=== PATIENT | male | born 1980 | race Caucasian/White ===

== ENCOUNTER 2017-03-19 22:00 | Inpatient (IN) | payer OTHER ==
[~2017-03-19] VITALS: Ht 185.4 cm; Wt 97.5 kg
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
--- NOTE | ~2017-03-19 | CO ---
Unit #: [id number] #: [id number] Patient: STEPHANY ANTONY [id number] [place] [address] [id number] I MR#: [id number] NAME: STEPHANY ANTONY ROOM: [facility] Age: 36 Sex: M Admission Date: 03/20/2017 : 1980 Attending Physician: Tristan Perkins M.D. Primary Care Physician: Reddy Hernandez M.D. Consultation Date: 03/20/2017 CONSULTATION REPORT HISTORY OF PRESENT ILLNESS Stephany reports that he has had a history of hemorrhoids, however, he was not any taking medications at home. He is not having bleeding, but does have pain with bowel movements for the past 2 weeks. He also reports that prior to admission, his ex-girlfriend called him to notify them that she tested positive for sexually transmitted infection. He is unsure which one. He believes it could have been trichomonas. He has not had any groin pain. No penile discharge. No other complaints. PHYSICAL EXAMINATION CARDIAC: Regular rate and rhythm. No murmurs, gallops, or rubs. RESPIRATORY: Clear to auscultation bilaterally. AND RECTAL: Deferred. ASSESSMENT AND PLAN 1. Possible exposure to sexually transmitted infection. We will obtain an STI panel. Please notify, if positive. 2. Hemorrhoids. We will begin preparation H ointment 4 times daily. Please notify, if symptoms are unresolved. The patient was instructed to follow up with primary care provider. Dictated by... Adelina Raines/иван TD: 03/21/2017 05:34 JOB #: [id number] CONSULTATION REPORT Page 1 of 1 X JIMMY POTTER APRN X CONSULTATION REPORT
--- NOTE | ~2017-03-19 | HP ---
Unit #: [id number] #: [id number] Patient: STEPHANY ANTONY [id number] [place] [address] [id number] I MR#: [id number] NAME: STEPHANY ANTONY ROOM: [facility] Age: 36 Sex: M Admission Date: 03/20/2017 : 1980 Attending Physician: Tristan Perkins M.D. Admitting Physician: Tristan Perkins M.D. Primary Care Physician: Reddy Hernandez M.D. HISTORY AND PHYSICAL HISTORY OF PRESENT ILLNESS Stephany is a 36-year-old male admitted on 03/10/2017 to [facility] for suicidal ideation PAST MEDICAL HISTORY GERD and hyperlipidemia. PAST SURGICAL HISTORY Bilateral heel fracture with surgical repair in 2003. SOCIAL HISTORY Smokes one to two packs of cigarettes daily. No alcohol or illegal drug use. He is currently single and living with roommates. FAMILY HISTORY Noncontributory. REVIEW OF SYSTEMS CONSTITUTIONAL: No fever or chills. HEENT: Denies any sore throat, ear pain or runny nose. CARDIOVASCULAR: Denies chest pain, irregular heart rhythm or palpitations. CHEST: Denies shortness of breath or cough. No hemoptysis. GASTROINTESTINAL: Denies nausea, vomiting, diarrhea or chronic constipation. ENDOCRINE: Denies history of increased thirst or urination. No recent significant weight loss or gain. GENITOURINARY: Denies dysuria, frequency, or hematuria. SKIN: Denies any rashes. HEMATOLOGIC: Denies history of increased bleeding or bruising. MUSCULOSKELETAL: Denies any hot, swollen joints. No generalized muscle pain. NEUROLOGIC: Denies problems with vision or speech. No frequent, severe headaches. No numbness, tingling or weakness in any extremities. Denies loss of bladder or bowel control. CURRENT MEDICATIONS 1. Seroquel 2. Omeprazole 3. Trileptal 4. Lipitor Unit #: [id number] #: [id number] Patient: STEPHANY ANTONY ALLERGIES 1. Haldol 2. Vistaril 3. Pimozide PHYSICAL EXAMINATION GENERAL: Alert, oriented, in no acute distress. VITAL SIGNS: Blood pressure 106/83, heart rate 86, respirations 16, temperature 98.6. HEIGHT: 6 foot 1 inches. WEIGHT: 223 pounds. SKIN: Warm and dry without rash or lesion. HEENT: Normocephalic. TMs not viewed. Oral and nasal passages clear. Conjunctivae clear. PERRLA. EOMs intact. NECK: Supple without lymphadenopathy or thyromegaly. HEART: Regular rate and rhythm without murmur. LUNGS: Clear. ABDOMEN: Soft, nontender, without masses or hepatosplenomegaly. : Not done. EXTREMITIES: No evidence of cyanosis, clubbing or edema. Moves all without focal deficit. NEUROLOGICAL: Grossly within normal limits. Cranial Nerves: II: Visual mcgarry are intact. III, IV AND : Extraocular movements are intact. Pupils are equal, round and reactive to light. V: Facial sensation is grossly normal. VII: Facial movements and expression are normal. VIII: Auditory acuity grossly intact. IX, X: Uvula is midline. Phonation is normal. XI: Patient shrugs shoulders and turns head normally. XII: Tongue protrudes in the midline. Sensory and Motor Function: Sensory and motor sensation is grossly normal. Motor: moves all extremities well. Coordination: Gait is normal. Deep Tendon Reflexes: Intact. IMPRESSION 1. Psychiatric admission. 2. GERD. 3. Hyperlipidemia. RECOMMENDATIONS Psychiatric, per psychiatrist. MEDICAL: I see no contraindications to participating in facility's activities. MEDICAL PROGNOSIS Good. MEDICAL CONDITION Stable. Dictated by... Marie RainesPGosiaRDavid Unit #: [id number] #: [id number] Patient: STEPHANY ANTONY DIPAK/lizzy TD: 03/20/2017 23:42 JOB #: [id number] HISTORY AND PHYSICAL Page 1 of 1 X JIMMY POTTER APRN HISTORY AND PHYSICAL
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
[~2017-03-19 22:00] MED LIST: CIPRO PO; EFFEXOR75 MG PO; FLOMAX0.4 M1 DOB; FLOMAX0.4 M1 PO; KLONOPIN1 MG PO; LORTAB 5/500 TA1 TA2 PO; NORCO 5/325 TAB1 TAB PO; PHENERGAN25 M1 PO; PRILOSEC40 MG PO; PYRIDIUM PO; SEROQUEL300 MG PO; TRILEPTAL PO; TRILEPTAL600 MG PO; VOLTAREN PO; ZYPREXA15 MG PO
[2017-03-20 09:35] LABS: BASOPHIL# 0.1 X10e3 (0-0.3); BASOPHIL% 0.7 % (0-2.5); EOSINOPHIL# 0.1 X10e3 (0-0.7); EOSINOPHIL% 0.8 % (0.0-7.0); HEMATOCRIT 48.3 % (38.0-50.0); LYMPHOCYTE# 1.8 X10e3 (1.0-3.5); LYMPHOCYTE% 15.6 % (17.0-45.0); MEAN CORPUSCULAR HEMOGLOBIN 32.4 PG (28-34); MEAN CORPUSCULAR HGB CONC 33.1 g/dL (30-36); MEAN PLATELET VOLUME 7.9 FL (6.5-11.5); MONOCYTE# 0.9 X10e3 (0-1.0); MONOCYTE% 7.9 % (3.0-12.0); NEUTROPHIL# 8.5 X10e3 (1.5-7.1); PLATELET COUNT 295 X10e3 (140-420); RED BLOOD COUNT 4.92 X10e (3.90-5.60); RED CELL DISTRIBUTION WIDTH 13.9 % (11.0-15.5); WHITE BLOOD COUNT 11.3 X10e3 (4.0-10.5)
[2017-03-20 09:39] LABS: DIFF IND NO
[2017-03-20 09:42] LABS: URINE APPEARANCE TURBID; URINE BILIRUBIN NEG (NEG); URINE BLOOD 2+ (NEG); URINE COLOR DK YELLOW; URINE GLUCOSE NEG (NEG); URINE KETONE NEG (NEG); URINE LEUKOCYTE ESTERASE NEG (NEG); URINE NITRATE NEG (NEG); URINE PH 5.5 (5-8); URINE PROTEIN TRACE (NEG); URINE SPECIFIC GRAVITY 1.034 (1.003-1.035)
[2017-03-20 09:43] LABS: ALBUMIN SERUM 3.6 g/dL (3.5-5.0); BILIRUBIN,TOTAL 0.2 mg/dL (0.2-2.0); BUN/CREATININE RATIO 12.5; CALCIUM SERUM 8.7 mg/dL (8.4-10.2); CREATININE SERUM 0.8 mg/dL (0.6-1.4); GLOM FILT RATE Estimated 115.8 mL/min (>60); POTASSIUM 3.9 mmol/L (3.5-5.1); PROTEIN TOTAL SERUM 6.2 g/dL (6.0-8.3)
[2017-03-20 09:45] LABS: CULTURE INDICATED? NO; URINE BACTERIA AUWI NEG (NEGATIVE); URINE SQUAMOUS EPITHELIAL CELL NONE SEEN /[HPF]; UWBCS1 AUWI 0-2 (0-5)
[2017-03-20 10:25] LABS: AMPHETAMINE NEG (NEG); BARBITURATES NEG (NEG); BENZODIAZEPINES NEG (NEG); COCAINE NEG (NEG); MARIJUANA NEG (NEG); OPIATES NEG (NEG); TRICYCLIC ANTIDEPRESSANTS POS (NEG); U METHADONE NEG (NEG)
[2017-03-21 18:31] LABS: URINE APPEARANCE CLEAR; URINE BILIRUBIN NEG (NEG); URINE BLOOD 1+ (NEG); URINE COLOR YELLOW; URINE GLUCOSE NEG (NEG); URINE KETONE NEG (NEG); URINE LEUKOCYTE ESTERASE NEG (NEG); URINE NITRATE NEG (NEG); URINE PROTEIN NEG (NEG); URINE SPECIFIC GRAVITY 1.014 (1.003-1.035)
[2017-03-21 18:33] LABS: URINE BACTERIA AUWI NEG (NEGATIVE); URINE SQUAMOUS EPITHELIAL CELL NONE SEEN /[HPF]; UWBCS1 AUWI 50-100 (0-5)
[2017-03-22 23:15] LABS: HSV 1 DNA Not Detected (Not Detected); HSV 2 DNA Not Detected (Not Detected)
[2017-03-23 14:37] LABS: CHLAMYDIA TRACH Not Detected (Not Detected); N GONOR Not Detected (Not Detected)
[2017-03-24 01:36] LABS: HA AB IGM (HEPPAN) Nonreactive (()); HB CORE AB IGM (HEPPAN) Nonreactive (Nonreactive); HB S AG (HEPPAN) Nonreactive (Nonreactive); HEP C AB (HEPPAN) Nonreactive (Nonreactive); HEP C AB SIGNAL TO CUTOFF 0.01 ratio (<1.00)
== END 2017-03-22 15:55 | disposition home or self-care (01) | DRG 885 ==
LOC: P2L 03-20 00:06
PROVIDERS: Specialist
DX: F31.9 Bipolar disorder, unspecified (principal); F95.2 Tourette's disorder; R45.851 Suicidal ideations; F60.2 Antisocial personality disorder; Z88.8 Allergy status to other drugs, medicaments and biological substances; F17.210 Nicotine dependence, cigarettes, uncomplicated; E78.5 Hyperlipidemia, unspecified; K21.9 Gastro-esophageal reflux disease without esophagitis; K64.9 Unspecified hemorrhoids
CPT/HCPCS: 80053; 80074; 80307; 81003; 85025; 86592; 87491; 87529; 87591; 87806

== ENCOUNTER 2017-05-22 10:35 | Inpatient (IN) | payer OTHER ==
[~2017-05-22] VITALS: Ht 185.4 cm; Wt 97.5 kg
--- NOTE | ~2017-05-22 | PN ---
Unit #: [id number] #: [id number] Patient: STEPHANY ANTONY [id number] [facility] [address] [place] [address] [id number] I MR#: [id number] NAME: STEPHANY ANTONY ROOM: [facility] Age: 36 Sex: M Admission Date: 05/22/2017 : 1980 Attending Physician: Tristan Perkins M.D. Admitting Physician: Tristan Perkins M.D. Primary Care Physician: Rosemary Fields PROGRESS NOTES DATE 05/26/2017 DISCUSSION The patient seems brighter today with reinitiation of his prescribed medications. Should he sustain progress discharge should take place as early as tomorrow. Dictated by... Tristan Perkins M.D. CB/lizzy TD: 05/25/2017 02:55 JOB #: [id number] DANA PROGRESS NOTES Page 1 of 1 X Tristan Perkins MD X PROGRESS NOTE
--- NOTE | ~2017-05-22 | HP ---
Unit #: [id number] #: [id number] Patient: STEPHANY ANTONY [id number] [place] [address] [id number] I MR#: [id number] NAME: STEPHANY ANTONY ROOM: [facility] Age: 36 Sex: M Admission Date: 05/22/2017 : 1980 Attending Physician: Tristan Perkins M.D. Admitting Physician: Tristan Perkins M.D. Primary Care Physician: Reddy Hernandez M.D. HISTORY AND PHYSICAL HISTORY OF PRESENT ILLNESS Stephany is a 36 year old admitted to [address] [place] [address] with depression and verbalizing wanting to hurt himself. PAST MEDICAL HISTORY 1. History of drug use to include benzodiazepines. He reports he has been clean for 6 months. 2. Hyperlipidemia. 3. Tourette's syndrome. PAST SURGICAL HISTORY Fractured bilateral ankles with ORIF. ALLERGIES Haldol, Vistaril. SOCIAL HISTORY Smokes one pack per day. Drinks alcohol rarely. Has a history of abusing benzodiazepines. FAMILY HISTORY Medically noncontributory. REVIEW OF SYSTEMS CONSTITUTIONAL: No fever or chills. HEENT: Denies any sore throat, ear pain or runny nose. CARDIOVASCULAR: Denies chest pain, irregular heart rhythm or palpitations. CHEST: Denies shortness of breath or cough. No hemoptysis. GASTROINTESTINAL: Denies nausea, vomiting, diarrhea or chronic constipation. ENDOCRINE: Denies history of increased thirst or urination. No recent significant weight loss or gain. GENITOURINARY: Denies dysuria, frequency, or hematuria. SKIN: Denies any rashes. HEMATOLOGIC: Denies history of increased bleeding or bruising. MUSCULOSKELETAL: Denies any hot, swollen joints. No generalized muscle pain. NEUROLOGIC: Denies problems with vision or speech. No frequent, severe headaches. No numbness, tingling or weakness in any extremities. Denies loss of bladder or bowel control. CURRENT MEDICATIONS 1. Lipitor 20 mg q. day. Unit #: [id number] #: [id number] Patient: STEPHANY ANTONY 2. Zyprexa 20 mg q. day. 3. Trileptal 600 mg b.i.d. 4. Milk of Magnesia p.r.n. 5. Maalox p.r.n. 6. Tylenol p.r.n. 7. Nicotine patch 21 mg q. day. 8. Protonix 40 mg q. day. PHYSICAL EXAMINATION GENERAL: Alert, well nourished. No apparent distress. VITAL SIGNS: Blood pressure 115/70, heart rate 70, respirations 16, and temperature 98.6. WEIGHT: 215. HEIGHT: 6 feet 1 inches. SKIN: Warm and dry without rash or lesion. HEENT: Normocephalic. TMs not viewed. Oral and nasal passages clear. Conjunctivae clear. PERRLA. EOMs intact. NECK: Supple without lymphadenopathy or thyromegaly. HEART: Regular rate and rhythm without murmur. LUNGS: Clear. ABDOMEN: Soft, nontender. : Not done. EXTREMITIES: No evidence of cyanosis, clubbing or edema. Moves all without focal deficit. NEUROLOGICAL: Grossly within normal limits. Cranial Nerves: II: Visual mcgarry are intact. III, IV AND : Extraocular movements are intact. Pupils are equal, round and reactive to light. V: Facial sensation is grossly normal. VII: Facial movements and expression are normal. VIII: Auditory acuity grossly intact. IX, X: Uvula is midline. Phonation is normal. XI: Patient shrugs shoulders and turns head normally. XII: Tongue protrudes in the midline. Sensory and Motor Function: Sensory and motor sensation is grossly normal. Motor: moves all extremities well. Coordination: Gait is normal. Deep Tendon Reflexes: Intact. IMPRESSION Psychiatric admission. RECOMMENDATIONS PSYCHIATRIC: Per psychiatrist. MEDICAL: I see no contraindication to participate in this facility's activities. MEDICAL PROGNOSIS Good. MEDICAL CONDITION Stable. Dictated by... Brittany Joseph P.A.-C. for Rosemary Hendrix/bzsera Unit #: [id number] #: [id number] Patient: STEPHANY ANTONY TD: 05/23/2017 12:42 JOB #: [id number] HISTORY AND PHYSICAL Page 1 of 1 X Brittany Joseph HISTORY AND PHYSICAL
--- NOTE | ~2017-05-22 | DS ---
Unit #: [id number] #: [id number] Patient: STEPHANY ANTONY [id number] [place] [address] [id number] I MR#: [id number] NAME: STEPHANY ANTONY ROOM: [facility] Age: 36 Sex: M Admission Date: 05/22/2017 : 1980 Discharge Date: 05/25/2017 Attending Physician: Tristan Perkins M.D. Primary Care Physician: Reddy Hernandez M.D. DISCHARGE SUMMARY REASON FOR ADMISSION The patient is a 36-year-old white male with a history of chronic paranoid schizophrenia, admitted following a period of medication noncompliance. HOSPITAL COURSE The patient was admitted to the [address] [place] [address] unit and placed on suicide precautions. Home medications including Trileptal and Zyprexa were re-initiated. The patient exhibited rapid response to re-initiation of these medications and was much brighter and euthymic when seen by this physician on 05/24/2017. On 05/25/2017, he requested discharge and it was so ordered. FINAL DIAGNOSES Bipolar disorder, most recent episode depressed; hypertension; dyslipidemia; hemorrhoids. DISPOSITION ON DISCHARGE The patient is discharged on the following medications: Trileptal 600 mg b.i.d. for mood stabilization, Zyprexa 20 mg at bedtime for mood stabilization, Lipitor 20 mg daily for dyslipidemia, preparation H apply to affected areas b.i.d. for hemorrhoid pain, Lipitor, and Protonix 40 mg daily for GERD. DISCHARGE INSTRUCTIONS No dietary or physical restrictions were placed on the patient at the time of discharge. FOLLOWUP Followup will take place through the auspices of [facility]. PROGNOSIS The patient's prognosis is fair. ADDENDUM The patient's admitting diagnosis was in fact bipolar disorder, depressed phase, not schizophrenia as previously noted. Dictated by... Tristan Perkins M.D. CB/wesleyl Unit #: [id number] #: [id number] Patient: STEPHANY ANTONY TD: 05/25/2017 14:54 JOB #: [id number] DISCHARGE SUMMARY Page 1 of 1 X Tristan Perkins MD DISCHARGE SUMMARY
--- NOTE | ~2017-05-22 | PA ---
Unit #: [id number] #: [id number] Patient: STEPHANY ANTONY [id number] [place] [address] [id number] MR#: [id number] NAME: STEPHANY ANTONY ROOM: [facility] Age: 36 Sex: M Admission Date: 05/22/2017 : 1980 Date of Assessment: 05/23/2017 Attending Physician: Tristan Perkins M.D. Admitting Physician: Tristan ePrkins M.D. Primary Care Physician: Reddy Hernandez M.D. PSYCHIATRIC ASSESSMENT IDENTIFYING INFORMATION The patient is a 36-year-old white male admitted to the [address] [place] [address] with recurrence of suicidal ideation related to a period of medication noncompliance. CHIEF COMPLAINT "I ran out of my medicine." INFORMANT(S) Patient, reliability is good. HISTORY OF PRESENT ILLNESS The patient is a 36-year-old white male last admitted to this facility in March of this year. He reports that he recently missed his [facility] appointment and as a result has been off his medications for sometime. The patient reports reduced sleep and increased depression, anxiety, and thoughts of suicide. He had also reported some increased abuse of cannabis. He has maintained sobriety from alcohol. The patient is today contrite over the events leading to hospitalization but continues to express sadness of mood and some ongoing suicidal ideation. For more complete history of present illness, please refer to previously dictated notes. PAST PSYCHIATRIC HISTORY Reviewed, no changes. PAST MEDICAL HISTORY Reviewed, no changes. MEDICATIONS Zyprexa, Trileptal, Protonix, Lipitor, preparation H. ALLERGIES Haldol, Vistaril, Pimozide. FAMILY HISTORY Reviewed, no changes. SOCIAL HISTORY Reviewed, no changes. MENTAL STATUS EXAMINATION Examination at this time reveals the patient to be a well-developed Unit #: [id number] #: [id number] Patient: STEPHANY ANTONY well-nourished white male who is in a state of some dishevelment. He is awake, alert, and oriented in all spheres. His mood is mildly dysphoric, his affect constricted. Speech is generally well-coherent. There are no gross deficits in memory or cognition noted. Intelligence is judged to be in the average range based on fund of knowledge. The patient is cooperative throughout the interview. He is currently reporting positive suicidal ideation. He denies homicidal ideation. He denies any psychotic symptoms. His judgment and insight appear to be intact. ASSETS AND LIABILITIES The patient's assets: Motivation for change. Liabilities: Lack of resources. DIAGNOSTIC IMPRESSION 1. Bipolar disorder, depressed phase. 2. Alcohol use disorder by history. 3. Cannabis use disorder. 4. Gastroesophageal reflux disease. 5. Hypertension. TREATMENT PLAN The patient remains hospitalized for safety and stabilization. Suicide precautions remain in place. We will restart the patient's previously prescribed medications, and I have encouraged him to maintain a higher degree of compliance with medications and followup. ESTIMATED LENGTH OF STAY 3 to 4 days. Dictated by... Tristan Perkins M.D. CHRIS/adin TD: 05/23/2017 14:27 JOB #: [id number] PSYCHIATRIC ASSESSMENT Page 1 of 1 X Tristan Perkins MD X PSYCHIATRIC ASSESSMENT
[2017-05-23 09:52] LABS: BASOPHIL# 0.1 X10e3 (0-0.3); BASOPHIL% 0.8 % (0-2.5); EOSINOPHIL# 0.2 X10e3 (0-0.7); EOSINOPHIL% 2.2 % (0.0-7.0); HEMATOCRIT 48.1 % (38.0-50.0); LYMPHOCYTE# 1.7 X10e3 (1.0-3.5); LYMPHOCYTE% 24.6 % (17.0-45.0); MEAN CELL VOLUME 97.8 FL (83-96); MEAN CORPUSCULAR HEMOGLOBIN 32.5 PG (28-34); MEAN CORPUSCULAR HGB CONC 33.2 g/dL (30-36); MEAN PLATELET VOLUME 7.7 FL (6.5-11.5); MONOCYTE# 0.6 X10e3 (0-1.0); MONOCYTE% 9.2 % (3.0-12.0); NEUTROPHIL# 4.3 X10e3 (1.5-7.1); NEUTROPHIL% 63.2 % (40-75); PLATELET COUNT 289 X10e3 (140-420); RED BLOOD COUNT 4.92 X10e (3.90-5.60); RED CELL DISTRIBUTION WIDTH 13.9 % (11.0-15.5); WHITE BLOOD COUNT 6.8 X10e3 (4.0-10.5)
[2017-05-23 09:55] LABS: DIFF IND NO
[2017-05-23 10:20] LABS: THYROID STIMULATING HORMONE 1.01 uIU/ml (0.34-5.60)
[2017-05-23 10:29] LABS: FREE THYROXIN (T4) 0.81 ng/dL (0.58-1.64)
[2017-05-23 10:33] LABS: ALBUMIN SERUM 3.6 g/dL (3.5-5.0); BILIRUBIN,TOTAL 0.6 mg/dL (0.2-2.0); BUN/CREATININE RATIO 14.44; CALCIUM SERUM 8.7 mg/dL (8.4-10.2); CREATININE SERUM 0.9 mg/dL (0.6-1.4); GLOM FILT RATE Estimated 110.3 mL/min (>60); POTASSIUM 4.3 mmol/L (3.5-5.1)
== END 2017-05-25 14:30 | disposition home or self-care (01) | DRG 885 ==
LOC: P1S 14:58 → POF 17:53 → P1S 17:53 → P2L 05-23 15:22 → P1S 05-23 16:07
PROVIDERS: Specialist
DX: F31.9 Bipolar disorder, unspecified (principal); I10 Essential (primary) hypertension; F10.10 Alcohol abuse, uncomplicated; F12.10 Cannabis abuse, uncomplicated; K21.9 Gastro-esophageal reflux disease without esophagitis; Z88.8 Allergy status to other drugs, medicaments and biological substances
CPT/HCPCS: 80053; 84439; 84443; 85025